=== PATIENT | female | born 1985 | race African-American/Black ===

== ENCOUNTER 2019-01-07 09:27 | Emergency (ER) | payer OTHER ==
[~2019-01-07] VITALS: Ht 160 cm; Wt 64.9 kg
[2019-01-07 09:28] VITALS: Ht 160 cm; Wt 64.9 kg
[2019-01-07 11:16] VITALS: BP 112/75
== END 2019-01-07 11:16 | disposition home or self-care (01) ==
LOC: ED 09:27
DX: S13.9XXA Sprain of joints and ligaments of unspecified parts of neck, initial encounter (principal); M25.511 Pain in right shoulder; M25.512 Pain in left shoulder; V48.9XXA Unspecified car occupant injured in noncollision transport accident in traffic accident, initial encounter; Y93.89 Activity, other specified; Y92.488 Other paved roadways as the place of occurrence of the external cause; Y99.8 Other external cause status